=== PATIENT | male | born 1990 | race Caucasian/White ===

== ENCOUNTER 2018-03-01 22:10 | Emergency (ER) | payer OTHER ==
[~2018-03-01] VITALS: Ht 175.3 cm; Wt 104.3 kg
[2018-03-01] MEDS ORDERED: VENTOLIN HFA18 GM INH (22:32)
[2018-03-01] MEDS ORDERED: PROTONIX20 MG PO (22:32)
[2018-03-01] MEDS ORDERED: ZOLOFT20 MG/1 ML (22:32)
[2018-03-01] MEDS ORDERED: SINGULAIR4 MG PO (22:32)
[2018-03-01] MEDS ORDERED: LYRICA25 MG (22:32)
[2018-03-01] MEDS ORDERED: TOPAMAX15 MG (22:33)
--- NOTE | 2018-03-02 07:02 | EKG ---
[facility] [address] [facility] [place] [address] Signed Normal sinus rhythm Possible Left atrial enlargement Borderline ECG No previous ECGs available Confirmed by MAHESH PENA MD ([id number] on 03/02/2018 7:02:17 AM Electronically Signed By: MAHESH PENA MD 03/02/18 0702 PATIENT NAME: RAZA BETHEA Electrocardiogram DATE OF : 89 PHYSICIAN: MAHESH PENA MD REPORT #: [id number] REPORT IS CONFIDENTIAL AND NOT TO BE RELEASED WITHOUT AUTHORIZATION
== END 2018-03-01 23:29 | disposition home or self-care (01) ==
LOC: ED 22:10
DX: J98.8 Other specified respiratory disorders (principal); B97.89 Other viral agents as the cause of diseases classified elsewhere; R07.9 Chest pain, unspecified; F31.9 Bipolar disorder, unspecified; J45.909 Unspecified asthma, uncomplicated; F41.9 Anxiety disorder, unspecified; Z87.891 Personal history of nicotine dependence; Z88.2 Allergy status to sulfonamides; Z79.899 Other long term (current) drug therapy
CPT/HCPCS: 71046; 80053; 84484; 85025; 93005; 93010; 99284